=== PATIENT | male | born 1965 | race Caucasian/White ===

== ENCOUNTER → 2020-05-01 15:00 | Outpatient (CLI) | payer OTHER | END | disposition home or self-care (01) | LOC: PPH VACUNA 15:00 | DX: Z23 Encounter for immunization (principal) ==

== ENCOUNTER → 2020-05-22 10:02 | Outpatient (CLI) | payer OTHER | END | disposition home or self-care (01) | LOC: PPH VACUNA 10:02 | DX: Z23 Encounter for immunization (principal) ==